=== PATIENT | female | born 1950 | race Caucasian/White ===

== ENCOUNTER → 2017-02-03 | Day surgery (SDC) | payer MEDICARE, OTHER ==
[2017-02-03] VITALS (7 sets, daily range): BP systolic 110–140; BP diastolic 69–88; PULSE 69–79; RESP 16; O2SAT 100
[~2017-02-03] MED LIST: ACET-97 PO; CALC-784 PO; CHOL100043 PO; CLC200SP2; DAPS100T2 PO; HYDR-4003 PO; LEVO112T3 PO; LOPE-147 PO; LOPE1TAB13 PO; MULT-1007 PO; PRE10 PO; SULF-239 PO; TACR1CAP PO; TACR1CAP8 PO; WARF5TAB PO; WARF7.5T PO; diphenhydrAMINE 25 mg Capsule PO ONE
[2017-02-03] MEDS: Furosemide 10 mg/mL 2 mL Inj IV PRN ×2 (14:10→18:55)
--- NOTE | 2017-02-03 18:56 | NUR ---
2 units RBC Obtained a new order for pre meds, meds given. Pt tolerated blood well, vss throughout. End vs temp is 37.3 pt refused tylenol and states she will take it at home. Lasix 20mg given after each unit as ordered. pt left ambulatory with a cane.
== END | disposition home or self-care (01) ==
LOC: MOCO 07:42
PROVIDERS: ATTEND Family Medicine
DX: D50.9 Iron deficiency anemia, unspecified (principal); R60.9 Edema, unspecified; K25.4 Chronic or unspecified gastric ulcer with hemorrhage; N18.4 Chronic kidney disease, stage 4 (severe); E03.9 Hypothyroidism, unspecified; Z79.01 Long term (current) use of anticoagulants
CPT/HCPCS: 36415; 36430; 82607; 82668; 82728; 83010; 83615; 86880; 86922; 96374; 96376; J1940; P9021

== ENCOUNTER 2017-03-10 11:29 | Inpatient (IN) | payer MEDICARE, OTHER ==
[~2017-03-10] VITALS: Ht 157.5 cm; Wt 63.7 kg
[~2017-03-10 11:29] MED LIST changes: -DAPS100T2 PO; -LOPE1TAB13 PO; -WARF7.5T PO; -diphenhydrAMINE 25 mg Capsule PO ONE
[2017-03-10 11:52] VITALS: BP 138/89; PULSE 149; RESP 12; O2SAT 99
--- NOTE | 2017-03-10 12:20 | ED.REPORT ---
HPI-Chest Pain 40 and Over Date of Service Mar 10, 2017 ED Provider: Dandre Larose Patient is a 66 year old female with a hx of resolved afib, HTN, CAD, DVT, and bilateral lung transplants who presents to the ED complaining of an elevated heart rate that was made known to her yesterday at 1400. She received an iron transfusion and was told to follow up with her sand polisher but she does not have one. She denies chest pain, SOB, syncope, headache, or any other symptoms. She takes tacrolimus. She sees a wire winding machine tender because the tacrolimus has deteriorated her kidney function. She has not been taking her BP medications ( lisinopril and amlodipine) per her PCP's instructions. She has been off of Coumadin since the 12 of February. She stopped taking her Lasix yesterday. Patient has similar symptoms a few years ago and was given medication to slow her heart down. Nursing Notes Stated Complaint: INCREASED BP AND PULSE SINCE 03/09 Chief Complaint: Dysrhythmia/Cardiac Nursing Notes Reviewed: Yes Allergies: Coded Allergies: No Known Allergies (Verified , 01/28/13) Scheduled Calcitonin [place] (Miacalcin) 30 [place]/3.7 Ml Nasalspr 1 SPRAY NA HS [place] in 1 Nostril (Alternating Nostrils) Daily Calcium Carbonate (Tums X-Str) 300 Mg Tab.chew 500-1,000 MG PO DAILY Cholecalciferol (Vitamin D3) (Vitamin D) 1,000 Unit Tablet 1,000 UNIT PO DAILY Levothyroxine (Synthroid) 112 Mcg Tablet 88 MCG PO DAILY Multivitamin (Multi-Vitamin Daily) 1 Each Tablet 1 EACH PO DAILY Prednisone (PredniSONE) 10 Mg Tablet 10 MG PO QAM Sulfamethoxazole/Trimeth 400-80 mg (Bactrim) 1 Each Tablet 80 MG PO HS Tacrolimus (Prograf) 1 Mg Capsule 2 MG PO Q12 Takes at 0820 and 2020 Warfarin Sodium (Coumadin) 5 Mg Tablet 5 MG PO DAILY Scheduled PRN Acetaminophen (Acetaminophen) 500 Mg Tablet 500-1,000 MG PO Q4 PRN PRN For Pain Hydrocodone-Acetaminophen 5-325 mg (Hydrocodone-Acetaminophen 5-325 mg) 1 Each Tablet 1 EACH PO Q4 PRN PRN For Pain Loperamide HCl (Imodium A-D) 2 Mg Capsule 2 MG PO PRN AD Miscellaneous Medications Tacrolimus (Tacrolimus) 1 Mg Capsule 2.5 MG PO General Time Seen by MD: 12:19 Chief Complaint Other (Elevated heart rate ) Hx Obtained From: Patient Arrived By: Walk-in Sudden in Onset?: Yes Onset Occurred: Yesterday Symptom Duration: Since onset Recent Healthcare: Recent doctor visit Similar Sx Previous: Yes Risk Factors )( CAD Risk Stratification Hypertension Known CAD Risk factors reviewed )( TAD Risk Stratification HypertensionNo Risk factors reviewed )( PE Risk Stratification Previous DVTNo , No Risk factors reviewed Past Medical History Past Medical History DVT CAD HTN Thyroid disease 1 episode of afib Pulmonary fibrosis prior to lung transplant Immunosuppressed GI bleed chronic edema Past Surgical History Bilat lung transplant Smoking History Former Smoker Social History Alcohol Use: Denies alcohol use Drug Use: Denies drug use Other Social History: Good social support, Ambulatory Status Independent Review of Systems Review of Systems Note: +elevated HR Respiratory: Denies: Shortness of breath Cardiovascular: Denies: Chest pain Neurologic: Denies: Headache, Syncope Complete sys rev & neg: except as marked. Physical Exam Initial Vital Signs Vital Signs (First) Date Time Temp Pulse Resp B/P Pulse Ox O2 Delivery O2 Flow Rate FiO2 03/10/17 11:52 36.8 149 12 138/89 99 Room Air Initial VS: Reviewed, Vital signs abnormal Head / Eyes: Atraumatic, Normocephalic Neck: Supple, Non-tender, Full range of motion Skin: Warm, Dry Neurologic: Alert, Oriented, Nonfocal Psychiatric: Mood/affect normal, Behavior normal, Normal thought content General/Constitutional: Awake, Alert, No acute distress Respiratory / Chest: Atraumatic, Breath sounds NL, Breath sounds = bilat, No respiratory distress Cardiovascular: Regular rhythm Heart Rate / Rhythm: Positive: Tachycardia Abdomen: Atraumatic, Soft, Non-tender Lower Extremity / Pelvis / MS: Atraumatic Trace edema ENT: Mucous membranes moist Interpretation & Diagnostics Lab Results Interpretation Result Diagram: 03/10/17 1220 03/10/17 1220 Test 03/10/17 12:20 03/10/17 12:38 White Blood Count 9.3th/mm3 (3.8-10.1) Red Blood Count 3.71mil/mm3 (3.90-5.20) Hemoglobin 10.5g/dL (12.0-15.6) Hematocrit 32.7% (35.0-46.0) Mean Corpuscular Volume 88.1fL (81-100) Mean Corpuscular Hemoglobin 28.3pg (27.0-35.0) Mean Corpuscular Hemoglobin Concent 32.1% (32.0-37.0) Red Cell Distribution Width 22.4% (12.3-15.4) Platelet Count 168bil/L (150-400) Neutrophils (%) (Auto) 78.8% (40-74) Lymphocytes (%) (Auto) 12.0% (14-46) Monocytes (%) (Auto) 7.5% (4-12) Eosinophils (%) (Auto) 0.3% (0-5) Basophils (%) (Auto) 0.2% (0-3) Sodium Level 140mEq/L (134-144) Potassium Level 3.8mEq/L (3.5-5.2) Chloride Level 102mEq/L (97-108) Carbon Dioxide Level 21mmol/L (18-29) Blood Urea Nitrogen 59mg/dL (8-27) Creatinine 2.27mg/dL (0.57-1.00) Estimat Glomerular Filtration Rate 31mL/min (>59) Glucose Level 106mg/dL (60-99) Calcium Level 9.3mg/dL (8.5-10.1) Magnesium Level 2.0mg/dL (1.6-2.6) Total Bilirubin 0.3mg/dL (0.0-1.2) Aspartate Amino Transf (AST/SGOT) 25U/L (0-50) Alanine Aminotransferase (ALT/SGPT) 13U/L (0-32) Alkaline Phosphatase 53U/L (25-165) Troponin T 0.045ug/L (0.0-0.011) Total Protein 6.9g/dL (6.4-8.4) Albumin 4.1g/dL (3.4-5.0) Hold [place] Top Tube Received (Received) ECG Interpretation ECG Interpretation: aflutter with a rate of 145 Time: 12:40 Interpreted by: ED physician ECG Interpretation: Aflutter rate 111 LVH Time: 15:09 Interpreted by: ED physician X-Ray Chest Interpretation Chest Xray Interpretation: IMPRESSION: No acute pulmonary process. Dictated by: Amanda Torres M.D. on 03/10/2017 at 12:10 Approved by: Amanda Torres M.D. on 03/10/2017 at 12:11 View: Portable, 1 view Interpretation / Wet Read by: Interpret - Radiologist Re-Eval/Medical Decision Med Decision/Clinical Course 66-year-old female with history of lung transplant, renal insufficiency, hypothyroidism, anemia, hypertension. She was seen yesterday for her third iron infusion and told that her heart rate was elevated, advised to call her sand polisher. Because she does not have a sand polisher she did not do so and did not make it to the ER until today. She is completely asymptomatic. He notes that similar elevated heart rate happened about 3 years ago when she had her lung transplant and resolved with medication. It has not recurred since. She has been on Coumadin due to a DVT until just recently because of stomach ulcer. Her EKG showed atrial flutter with rapid ventricular response. Her heart rate was not responsive to Lopressor 15 mg IV, however after receiving diltiazem 20 mg IV 1 and her heart rate dropped from the 140s to the 90s. Unfortunately this did not last long and her heart rate drifted back up to the 140s. She was started on a diltiazem drip and admitted for further workup and treatment. Her troponin was elevated at 0.045, most likely due to demand ischemia with an ongoing elevated heart rate. Time of Eval: 14:21 Re-Evaluation/Progress Note: Rechecked pt who is still not having CP or SOB. reports her lowest HR has been 137. Discussed plan to try diltiazem. Patient understands and agrees with plan. All questions addressed at this time. Re-Evaluation/Progress Note: Heart rate improved down to 90s after diltiazem, but then drifted back up into the 130s and 140s. Patient agreeable to admission Consultation : Referral / Consult Name: Kim Norris DO Dental Service Technician: Will see patient, Agrees with eval, Accepts admit Note: Will send resident down for evaluation Counseled Regarding: Diagnosis, Lab results, Need for admission Discharge & Departure Primary Impression: Atrial flutter with rapid ventricular response Additional Impressions: Elevated troponin Acute renal insufficiency Anemia Anemia type: unspecified type Qualified Code: D64.9 - Anemia, unspecified Disposition: ADMITTED TO HOSPITAL Discharge Condition All VS Reviewed: Yes Condition: Stable Referrals: Chandler Nguyen MD (PCP) Crit Care Except Billable Proc Time Spent: 30-74 minutes Services Performed: Patient management by me, Time spent at bedside, Reviewing test results, Reviewing imaging, Discussing patient care, Documentation in record, Time with fam/surrogate Scribe Attestation Portions of this note were transcribed by Kenn Kwok. I, Dr. Larose personally performed the history, physical exam and medical decision-making; I reviewed and confirmed the accuracy of the information in the transcribed note. Signed by: Talat Huffman, 03/10/17 copies to: Chandler Nguyen MD, Gary R DO Mar 10, 2017 12:20 KENN KWOK Mar 10, 2017 12:32
[2017-03-10 12:41] LABS: BASOPHILS % (AUTO) 0.2 % (0-3); EOSINOPHILS % (AUTO) 0.3 % (0-5); MONOCYTES % (AUTO) 7.5 % (4-12); Mean Corpuscular Hemoglobin 28.3 pg (27.0-35.0); Mean Corpuscular Volume 88.1 fL (81-100); NEUTROPHILS % (AUTO) 78.8 % (40-74); Platelet Count 168 bil/L (150-400)
--- NOTE | 2017-03-10 13:12 | DRSVH ---
PROCEDURE: X-RAY CHEST ONE VIEW, PORTABLE ([id number]) INDICATIONS: Tachycardia TECHNIQUE: One view of the chest was acquired. COMPARISON: [facility], , CHEST 1VW (PORTABLE), 07/26/2013, 12:25. FINDINGS: Surgical changes and devices: Sternotomy clips are noted. Lungs and pleura: No pleural effusions or pneumothorax. Lungs are clear. Mediastinum: Mediastinal contours appear normal. Heart size is enlarged. Bones and chest wall: No suspicious bony lesions. Overlying soft tissues appear unremarkable. IMPRESSION: No acute pulmonary process. Dictated by: Amanda Torres M.D. on 03/10/2017 at 12:10 Approved by: Amanda Torres M.D. on 03/10/2017 at 12:11
[2017-03-10] MEDS: MeTOProlol 1 mg/mL 5 mL Inj IVPUSH SCH ×4 (13:16→14:03)
[2017-03-10 13:19] LABS: TROPONIN T 0.045 ug/L (0.0-0.011)
[2017-03-10] MEDS ORDERED: Diltiazem 5 mg/mL 5 mL Inj IVPUSH ONE (14:25)
[2017-03-10] MEDS ORDERED: 0.9% Sodium Chloride 1,000 ML IV ONE (14:51)
[2017-03-10] MEDS ORDERED: Diltiazem HCl 125 MG in 0.9% Sodium Chloride 100 ML, Pharmacy To Mix 1 EA IV SCH ×2 (15:35→16:35)
[2017-03-10] MEDS ORDERED: Ondansetron 2 mg/mL 2 mL Inj IVPUSH PRN (16:35)
[2017-03-10] MEDS ORDERED: Alum-Mag Hydrox-Simeth 30 mL Suspension PO PRN (16:35)
[2017-03-10] MEDS ORDERED: Polyethylene Glycol (PEG) 17 Gm Powder PO PRN (16:35)
[2017-03-10] MEDS ORDERED: HYDROcodone-APAP 5-325 mg Tablet PO PRN (16:35)
--- NOTE | 2017-03-10 16:55 | PCM.HPMED ---
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 She reports that she had noticed a fast heart rate on her home ui ux web developer for the past several days but had been hoping that it would resolve on its own. She denies chest pain or palpitations, fatigue beyond her baseline, dizziness, or syncope. She does report BL weakness in her legs which has been longstanding since a fall earlier in the year which further exacerbated her chronic back pain. She states that had she known how many complications she would have experienced post transplant she likely would have elected for palliative care. She states that she likes to be up about and active because being sedentary causes her back pain to flare. She reports that she had been taking Warfarin until February 12 due to her history of suspected Factor V leiden and previous DVTs, but had discontinued this medication due to her active peptic ulcers which had lead to anemia requiring transfusion. She had been advised by GI to begin triple therapy for H.pylori but had deferred beginning that treatment until she could converse with her transplant sweatband maker about possible drug interactions. In the ED the patient was found to be in Afib with RVR with a rate of 140 unresponsive to metoprolol to IV diltiazem. The patient was converted to a Diltiazem drip and admitted for further management of her Afib. Review of Systems: Comprehensive ROS negative except as listed above in the HPI Allergies Coded Allergies: No Known Allergies (Verified , 01/28/13) Home Medications Calcitonin [place] (Miacalcin) 30 [place]/3.7 Ml Nasalspr 1 SPRAY NA HS [place] in 1 Nostril (Alternating Nostrils) Daily Calcium Carbonate (Tums X-Str) 300 Mg Tab.chew 500-1,000 MG PO DAILY Cholecalciferol (Vitamin D3) (Vitamin D) 1,000 Unit Tablet 1,000 UNIT PO DAILY Levothyroxine (Synthroid) 112 Mcg Tablet 88 MCG PO DAILY Multivitamin (Multi-Vitamin Daily) 1 Each Tablet 1 EACH PO DAILY Prednisone (PredniSONE) 10 Mg Tablet 10 MG PO QAM Sulfamethoxazole/Trimeth 400-80 mg (Bactrim) 1 Each Tablet 80 MG PO HS Tacrolimus (Prograf) 1 Mg Capsule 2 MG PO Q12 Takes at 0820 and 2020 Warfarin Sodium (Coumadin) 5 Mg Tablet 5 MG PO DAILY Scheduled PRN Acetaminophen (Acetaminophen) 500 Mg Tablet 500-1,000 MG PO Q4 PRN PRN For Pain Hydrocodone-Acetaminophen 5-325 mg (Hydrocodone-Acetaminophen 5-325 mg) 1 Each Tablet 1 EACH PO Q4 PRN PRN For Pain Loperamide HCl (Imodium A-D) 2 Mg Capsule 2 MG PO PRN AD Miscellaneous Medications Tacrolimus (Tacrolimus) 1 Mg Capsule 2.5 MG PO PMH DVT CAD HTN Thyroid disease 1 episode of afib Pulmonary fibrosis prior to lung transplant Immunosuppressed GI bleed secondary to H.pylori positive peptic ulcer disease chronic edema Surgical History Bilat lung transplant Family History Patient reports history of blood clots in multiple family members Social History Hx Alcohol Use: No Hx Substance Use: No Hx Tobacco Use: Yes (quit 30 years ago) Smoking Status: Former Smoker Living Arrangement: with Family Exam Vital Signs Vital Sign - Last Date Time Temp Pulse Resp B/P Pulse Ox O2 Delivery O2 Flow Rate FiO2 03/10/17 11:52 36.8 149 12 138/89 99 Room Air Exam Gen: A/O x3 pleasant cooperative age appropriate woman in NAD Neck: Supple, non tender, no lymphadenopathy, no JVD HEENT: PERRL, EOMI, no scleral icterus, no conjunctival pallor CV: Irregularly irregular tachycardia with no murmurs rubs or gallops Resp: lungs CTA BL, no wheezing rales or rhonchi Abd: No rebound masses guarding or tenderness Extr: No clubbing cyanosis or edema, half and half nails Neuro: CN 2-12 grossly intact, no focal neurologic deficit Psych: Intelligent and thoughtful woman with appropriate mood and affect Lab and Diagnostics Labs Item Value Date Time Red Blood Count 3.71 mil/mm3 L 03/10/17 1220 Mean Corpuscular Volume 88.1 fL 03/10/17 1220 Mean Corpuscular Hemoglobin 28.3 pg 03/10/17 1220 Mean Corpuscular Hemoglobin Concent 32.1 % 03/10/17 1220 Red Cell Distribution Width 22.4 % H 03/10/17 1220 Neutrophils (%) (Auto) 78.8 % H 03/10/17 1220 Lymphocytes (%) (Auto) 12.0 % L 03/10/17 1220 Monocytes (%) (Auto) 7.5 % 03/10/17 1220 Eosinophils (%) (Auto) 0.3 % 03/10/17 1220 Basophils (%) (Auto) 0.2 % 03/10/17 1220 Estimat Glomerular Filtration Rate 31 mL/min 03/10/17 1220 Calcium Level 9.3 mg/dL 03/10/17 1220 Magnesium Level 2.0 mg/dL 03/10/17 1220 Total Bilirubin 0.3 mg/dL 03/10/17 1220 Aspartate Amino Transf (AST/SGOT) 25 U/L 03/10/17 1220 Alanine Aminotransferase (ALT/SGPT) 13 U/L 03/10/17 1220 Alkaline Phosphatase 53 U/L 03/10/17 1220 Troponin T 0.045 ug/L *H 03/10/17 1220 Total Protein 6.9 g/dL 03/10/17 1220 Albumin 4.1 g/dL 03/10/17 1220 Result Diagram: 03/10/17 1220 03/10/17 1220 X-Rays, CTs and MRIs X-RAY CHEST ONE VIEW, PORTABLE IMPRESSION: No acute pulmonary process. Dictated by: Amanda Torers M.D. on 03/10/2017 at 12:10 Approved by: Amanda Torres M.D. on 03/10/2017 at 12:11 . 12-lead ECG aflutter with a rate of 145 Assessment & Plan Yesenia Penny is a complex 66 year old woman with a PMH of idiopathic pulmonary fibrosis s/p BL lung transplant in 2012 on chronic immunosuppressive therapy, Factor V Leiden with prior DVT, and active H.pylori PUD having discontinued Warfarin on February 12; she presents with asymptomatic Afib with RVR with rates in the 140s. Afib with RVR, POA, acute. Active -Patient with a history of Afib following transplant surgery treated with Metoprolol and Amiodarone -Currently on Dilt drip, may consider amiodarone drip as this was effective in the past -[id number] 3 -Will hold Warfarin pending records about GI bleed -Tele monitoring -Cardiology consult in the AM S/P Bl lung transplant, POA, chronic. Stable -Continue immunosuppressive regimen Tacrolimus -Patient pulmonary status is apparently stable without pulmonary meds CKD stage IIIB, POA. Active -Likely secondary to Tacrolimus -Being followed by subwarehouse supervisor at she cannot recall the name -Will continue Calcium supplementation with Calcitonin, Calcium Carb, and D3 -Nephrology consult H.pylori positive PUD, POA, chronic. Active -Holding Warfarin as above -Will defer H.pylori therapy per patient's wishes -Continue to Track H/H -Famotidine Chronic back pain, POA. Active -patient's home Percocet make her "loopy" only use as needed -Tylenol PRN -Calcium supplementation as above -patient prefers to periodically ambulate Hypothyroid, POA, chronic. Active -Continue home Levothyroxine Chronic Diarrhea, POA. Active -Continue home Loperamide patient Status: Inpatient, anticipated length of stay >2 midnights due to severity of condition, complexity of treatment plan, and risk of adverse events. Pain Evaluation: Adequate Pain Control GI Prophylaxis: H2 mariajose VTE Prophylaxis Indicated: Contraindicated (active GI bleed) VTE Mechanical Devices: Intermittant Pneumatic CD Resuscitation Status: DNR/DNI:Do Not Resuscitate/Intubate Attending Statement The patient was seen and examined together with Dr. Perez on 03/10/17 and I have added additional information to the note above. Earl Perez DO Mar 10, 2017 16:55 Kim Norris DO Mar 13, 2017 16:19
[2017-03-10] MEDS ORDERED: CALC500T9 PO (16:56)
[2017-03-10] MEDS ORDERED: ACET-2561 PO (16:56)
[2017-03-10] MEDS ORDERED: MULT-1018 PO (16:56)
[2017-03-10] MEDS ORDERED: PANT40TA3 PO (16:56)
[2017-03-10 17:23] VITALS: PULSE 143
[2017-03-10 17:24] VITALS: BP 121/86; PULSE 141; RESP 24; O2SAT 100
[2017-03-10] MEDS ORDERED: Amiodarone 150 mg/100 mL D5W 150 MG in IV Premix 1 EACH IV ONE (18:20)
[2017-03-10] MEDS ORDERED: Amiodarone 360 mg/200 mL D5W 360 MG, Filter, Taxol 14256-28 1 EACH in IV Premix 1 EACH IV SCH (18:20)
--- NOTE | 2017-03-10 18:25 | PCM.ADCARE ---
Advance Care Planning Note Plan: Date: 03/10/2017 Purpose of encounter: Goals of care Parties in attendance: The patient, Dr. Norris, Dr. Perez Diagnoses: A. fib with RVR CAD History of DVT Hypertension Thyroid disease Pulmonary fibrosis prior to lung transplant Immunosuppression GI bleed secondary to H. pylori positive for peptic ulcer disease Chronic edema Decisional capacity: Good Plan: The patient is aware of the current diagnosis and would like to be DO NOT RESUSCITATE/DO NOT INTUBATE. The patient understands that no chest compressions will be done and the patient will not be intubated. The patient and family understands that no form of CPR will be attempted and are in agreement with this. The patient does still want other measures performed such as IV fluids, antibiotics, and possible blood transfusions but does not want any form of CPR. CODE STATUS: DO NOT RESUSCITATE/DO NOT INTUBATE Time spent with advanced care planning: Greater than 16 minutes Kim Norris DO Mar 10, 2017 18:25
--- NOTE | 2017-03-10 19:19 | NUR ---
Arrived to unit Pt arrived to PCC room 2002 at ~1730 from ED, reporting pain in back from lack of movement and back pain hx, refused vicodin PRN at that time requesting a tylenol PRN, notified, tylenol PRN added, tylenol given which Pt reported as effective. Pt on diltiazem gtt at 10mg/hr with HR sinus tach in the 140s, after being on the floor for ~1hour, rate increased to 15mg/hr, HR remained in the 140s for ~45min, notified again who ordered diltiazem gtt changed to amiodarone gtt, orders received prior to shift change. While giving report to oncoming SANDRA RN and notifying that Pt needed to be switched to amiodarone after shift change, Pt's HR noted to be 90s-110s on dilt gtt, NOC RN verbalized that she would monitor and notify SANDRA VALLE of change in HR.
[2017-03-10 20:32] VITALS: BP 83/54; PULSE 78; RESP 16; O2SAT 98
[2017-03-10] MEDS ORDERED: Trimethoprim-Sulfa 160 mg-800 mg Tablet PO SCH (21:00)
[2017-03-10] MEDS: Calcitonin 200 IU 3.7 mL Nasal Spray NASAL SCH (21:00)
[2017-03-10 23:06] LABS: APPEARANCE,URINE CLEAR (CLEAR,HAZY); COLOR,URINE YELLOW (YELLOW); OCCULT BLOOD,URINE TRACE (NEGATIVE); UROBILINOGEN,URINE NORMAL (NORMAL)
[2017-03-10 23:50] VITALS: BP 114/78; PULSE 78; RESP 14; O2SAT 98
[2017-03-11] VITALS (8 sets, daily range): BP systolic 99–119; BP diastolic 66–85; PULSE 80–150; RESP 13–20; O2SAT 96–100
[2017-03-11 01:08] LABS: BASOPHILS % (AUTO) 0.3 % (0-3); EOSINOPHILS % (AUTO) 0.3 % (0-5); MONOCYTES % (AUTO) 8.1 % (4-12); Mean Corpuscular Hemoglobin 28.4 pg (27.0-35.0); Mean Corpuscular Volume 89.6 fL (81-100); NEUTROPHILS % (AUTO) 67.4 % (40-74); Platelet Count 146 bil/L (150-400)
[2017-03-11 01:12] LABS: INR 0.98 ratio
[2017-03-11 01:19] LABS: Magnesium 2.1 mg/dL (1.6-2.6)
[2017-03-11] MEDS ORDERED: Diltiazem HCl 125 MG in 0.9% Sodium Chloride 100 ML, Pharmacy To Mix 1 EA IV SCH (01:45)
--- NOTE | 2017-03-11 06:11 | NUR ---
HR/BP/Diltiazem Drip/Troponins Pt's HR at beginning of shift was A-Flutter 80s-100s with the dilt drip at 15ml/hr. Pt's SBP was in the 80s-90s and MD was notified. MD said to continue dilt drip at this time since pt is responding to the drip and the HR is <100 at rest but decrease the dose to 10ml/hr. Pt was eventually titrated down to 5ml/hr with HR remaining A-Flutter 70s-80s. Pt's HR did eventually go up during rest to 70s-100s so dilt drip was titrated back up to 10ml/hr and that is the rate that the pt is currently at with HR A-Flutter 70s-80s. Pt does get into the 150s when up to [facility] [place] have trended down and last Trop draw was 0.027.
--- NOTE | 2017-03-11 07:30 | NUR ---
ECHO/Home Med ECHO in room at 0730. Pt states she took her home medication for Synthroid at 0715. Pt educated re home medications to go to pharmacy for relabeling. Pt educated on risks involved with doubling up on medication, asked pt to wait for medications from hospital. Pt states she would never allow doubling to happen. Pt refused to send home medications to pharmacy states she will send home with . Consulted production supervisor off shift RN after leaving pt room, production supervisor off shift RN educated pt last night re home medication as well. Care continues.
[2017-03-11] MEDS: Calcium Carbonate (Oyster Shell) 500 mg Tablet PO SCH (08:30)
[2017-03-11] MEDS: predniSONE 10 mg Tablet PO SCH (10:16)
--- NOTE | 2017-03-11 12:43 | NUR ---
LFA IV IV painful per pt. Stopped Diltiazem IV, notified MD, notified IV therapy. IV therapy placing new IV now. MD ordered PO Diltiazem to be administered now, pharmacy notified, and aware. Conntinue Diltiazem drip 10 ml/hr for 2 hours post administration of Diltiazem PO, per MD order. Care continues.
--- NOTE | 2017-03-11 14:15 | PCM.PNMED ---
Subjective Date of Service Mar 11, 2017 Subjective Subjective: Patient sitting up in bed on exam, states that she finished to feel asymptomatic. She feels anxious and is curious about her discharge from the hospital. I let her know that this will likely be a short stay in the hospital , but this is also dependent on how well she responds to the medication. Events Overnight: No acute events overnight. ROS: Denies fever/chills, nausea/vomiting, headache, weakness, abdominal pain, chest pain, shortness of breath, increased swelling in hands or feet. Exam Vital Signs Vital Sign - Last Date Time Temp Pulse Resp B/P Pulse Ox O2 Delivery O2 Flow Rate FiO2 03/11/17 12:04 36.6 87 18 101/67 96 Room Air Intake and Output 03/10/17 03/10/17 03/11/17 Cumulative From/Thru 15:00 23:00 07:00 03/10/17 11:52 - 03/11/17 04:45 Intake Total 906 ml 895 ml 1801 ml Output Total 350 ml 350 ml Balance 906 ml 545 ml 1451 ml Intake Oral 300 ml 300 ml IV Total 906 ml 595 ml 1501 ml Output Urine Total 350 ml 350 ml # Bowel Movements 2 2 Exam General: No acute distress, well-developed, well-nourished HEENT: Normocephalic, atraumatic. External ears without defect. Pupils equal, round, and reactive to light and accommodation. Anicteric sclerae, moist conjunctivae. Cardiovascular: Tachycardic with no murmurs, rubs, or gallops appreciated Pulmonary: Clear to auscultation bilaterally with no crackles, wheezes, or rhonchi. Normal respiratory effort with no use of accessory muscles. Abdomen: Bowel tones present. Soft, nontender, nondistended. Extremities: No clubbing, cyanosis, edema Skin: Normal temperature, turgor, and texture; no rash, ulcers, or subcutaneous nodules appreciated. Neurological: Cranial nerves grossly intact. Reflexes, coordination, and sensory function within normal limits. Normal muscle strength, tone, and bulk. Psychiatric: Normal mood and affect. Alert and oriented to person, place, and time IVs and Medications Medications Reviewed: Medications were reviewed in detail Medications High-risk medications include: Tacrolimus Diltiazem drip Lab and Diagnostics Result Diagram: 03/11/17 0018 03/11/17 0018 X-Rays, CTs and MRIs X-RAY CHEST ONE VIEW, PORTABLE IMPRESSION: No acute pulmonary process. Dictated by: Amanda Torres M.D. on 03/10/2017 at 12:10 Approved by: Amanda Torres M.D. on 03/10/2017 at 12:11 . 12-lead ECG aflutter with a rate of 145 Cardiac Echo Impressions Echocardiogram Interpretation Summary 1) Normal left ventricular thickness, size, wall motion, and systolic function (EF 60-65%). 2) Normal right ventricular size and function. 3) The left atrium is moderately dilated. 4) No significant valvular abnormalities. 5) Atrial fibrillation with ventricular rates in the 79-127bpm are present during the study. 6) No prior Echo avaliable for comparison. Reading Physician:02:44 PM . Assessment & Plan Yesenia Penny is a complex 66 year old woman with a PMH of idiopathic pulmonary fibrosis s/p BL lung transplant in 2012 on chronic immunosuppressive therapy, Factor V Leiden with prior DVT, and active H.pylori PUD having discontinued Warfarin on February 12; she presents with asymptomatic Afib with RVR with rates in the 140s. Afib with RVR, POA, acute. Active -Patient with a history of Afib following transplant surgery treated with Metoprolol and Amiodarone -Dilt drip discontinued , patient switched to oral diltiazem every 6hrs -Patient already meets criteria for anticoagulation due to factor V Leiden mutation -Will hold Warfarin due history of recent GI bleed -Tele monitoring -Cardiology following -Echocardiogram ejection fraction 60-65%. Other findings as above Factor V Leiden mutation, POA, acute, active -Warfarin was discontinued due to gastric bleeding secondary to ulcers -Diltiazem drip discontinued on 03/11 due to developing SVT -Continue to monitor for signs of DVT, SVT, PE S/P Bl lung transplant, POA, chronic. Stable -Continue immunosuppressive regimen Tacrolimus -Patient pulmonary status is apparently stable without pulmonary meds CKD stage IIIB, POA. Active -Likely secondary to Tacrolimus -Being followed by information resource consultant at she cannot recall the name -Will continue Calcium supplementation with Calcitonin, Calcium Carb, and D3 -Nephrology consulted H.pylori positive PUD, POA, chronic. Active -Holding Warfarin as above -Will defer H.pylori therapy per patient's wishes -Continue to Track H/H -Famotidine Chronic back pain, POA. Active -patient's home Percocet make her "loopy" only use as needed -Tylenol PRN -Calcium supplementation as above -patient prefers to periodically ambulate Hypothyroid, POA, chronic. Active -Continue home Levothyroxine Chronic Diarrhea, POA. Active -Continue home Loperamide Disposition: Patient will require another 24 hours of cardiac monitoring prior to discharge home. Once we are able to titrate the patient onto a good regiment then she will be able to be discharged home safely and follow-up as an outpatient. We will continue to discuss with the patient the possibilities of taking triple therapy for her H. pylori and stomach ulcer as the patient will most likely need to be anticoagulated due to her atrial fibrillation. GI Prophylaxis: H2 mariajose VTE Mechanical Devices: Intermittant Pneumatic CD Resuscitation Status: DNR/DNI:Do Not Resuscitate/Intubate Attending Statement The patient was seen and examined together with Dr. Rodriguez on 03/11/17 and I have added additional information to the note above. Andrae Rodriguez DO Mar 11, 2017 14:15 Kim Norris DO Mar 12, 2017 13:13
--- NOTE | 2017-03-11 14:45 | DRSVH ---
[facility] [address] [place] [address] Echocardiogram Report Name: FIDEL SHELTON Date: 03/11/2017 Height: 62 in Hospital Exam Location: [facility] Weight: 124 lb Gender: Female BSA: 1.6 m2 : 1950 Age: 66 yrs BP: 115/66 mmHg Reason For Study: Atrial fibrillation Ordering Physician: Performed By: [facility] Interpretation Summary 1) Normal left ventricular thickness, size, wall motion, and systolic function (EF 60-65%). 2) Normal right ventricular size and function. 3) The left atrium is moderately dilated. 4) No significant valvular abnormalities. 5) Atrial fibrillation with ventricular rates in the 79-127bpm are present during the study. 6) No prior Echo avaliable for comparison. Procedure: A two-dimensional transthoracic echocardiogram with color flow and Doppler was performed. The study quality was technically adequate. There is no prior echocardiogram noted for this patient. The patient was in atrial fibrillation with heart rates between 79-127 bpm during the exam. Left Ventricle: The left ventricle is normal in size. Left ventricular wall thickness is normal. The ejection fraction is estimated to be 60-65%. Diastolic function could not be accurately assessed due to atrial fibrillation. Right Ventricle: The right ventricle is normal in size, thickness and function. Atria: The left atrium is moderately dilated. Right atrial size is normal. The interatrial septum is intact with no evidence for an atrial septal defect. Mitral Valve: The mitral valve is grossly normal. There is trace mitral regurgitation. Aortic Valve: The aortic valve is trileaflet. The aortic valve opens well. There is no aortic valve stenosis. No aortic regurgitation is present. Tricuspid Valve: The tricuspid valve leaflets are thin and pliable. There is mild tricuspid regurgitation. The right ventricular systolic pressure is estimated at 29 mmHg assuming a right atrial pressure of 3 mm Hg. Pulmonic Valve: The pulmonic valve is not well visualized. There is no pulmonic valvular regurgitation. Great Vessels: The aortic root is normal size. The dimensions of the ascending aorta are normal. The IVC is of normal diameter and collapses greater than 50% with a sniff. This suggests a low right atrial pressure of 3 mm Hg. Pericardium/ Pleura There is no pericardial effusion. There is no pleural effusion. MMode/2D Measurements & Calculations LVIDd: 3.7 cm LA dimension: 4.3 cm RA long axis Ao root diam LVIDs: 2.4 cm FS: 33.9 % LA A2 area: 24.6 cm RA area Aortic Jxn: 2.9 cm IVSd: 1.1 cm LA A4 area: 23.7 cm asc Aorta Diam LVPWd: 0.85 cm LA length (vol) : 13.2 cm RA vol Ao Arch Diam (Prox LA vol: 81.6 ml : 33.9 ml Trans): 2.8 cm LA vol index RA : 21.7 mm/ : 52.3 ml/m2 RVDd major : 5.3 cm LV vasquez. diameter/BSA LV sys. diameter/BSA RVD1 (basal) RVD2 (mid): 2.7 cm (cm/m^2): 2.3 (cm/m^2): 1.6 Doppler Measurements & Calculations LVOT Max Donn MV E max donn MV E/A: 2.0 TR max donn : 144.3 cm/sec : 85.2 cm/sec Med Peak E' Donn : 252.5 cm/sec MV A max donn TR max PG : 42.2 cm/sec E/E' med: 7.8 : 25.5 mmHg MV P1/2t: 46.6 msec Lat Peak E' Donn PA V2 max : 103.8 cm/sec E/E' lat: 5.7 PA mean PG E/e' average: 6.8 PA Accel Time : 0.08 sec MV dec time MV P1/2t max donn LV V1 max PG PA V2 mean : 0.15 sec : 59.8 cm/sec MVA(P1/2t): 4.7 cm2 LV V1 VTI: 25.5 cm Reading Physician:02:44 PM
--- NOTE | 2017-03-11 15:36 | PCM.CHPCAR ---
Consult Subjective Date of service Mar 11, 2017 Date of admit Mar 10, 2017 at 16:51 Provider Requesting Consult Requesting Provider: Kim Norris DO Primary Care Physician Primary Care Physician: Chandler Nguyen MD Chief Complaint 66-year-old woman history of IPF status post bilateral lung transplant in 2012, paroxysmal atrial fibrillation, and GI bleeding from peptic ulcer disease in September 2016 admitted due to atrial fibrillation with rapid ventricular response. History of Present Illness Patient states that she is doing well and has no symptoms. She is able to do her usual activities including her yard work without any difficulty. Two days ago, she went to hematology clinic for her chronic anemia suspected and was told that she has faster heart rate and see cardiology for it. 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 So she decided to come to the emergency room yesterday for further care. Since being in the hospital, her heart rates have been better controlled with diltiazem drip. She has been transitioned to PO diltiazem today. Review of Systems Review of Systems Per history of present illness and otherwise unremarkable PMH Past Medical History # IPF status post bilateral lung transplant in 2012 # Paroxysmal atrial fibrillation # DVT 05/2016 # GI bleeding from peptic ulcer disease while on warfarin in 09/2016 # CKD suspected from tacrolimus Scheduled Calcitonin Crandall (Miacalcin) 30 [place]/3.7 Ml Nasalspr 1 SPRAY NA HS (Reported) [place] in 1 Nostril (Alternating Nostrils) Daily Calcium Carbonate (Tums) 500 Mg Tab.chew 500 MG PO DAILY (Reported) Cholecalciferol (Vitamin D3) (Vitamin D) 1,000 Unit Tablet 1,000 UNIT PO DAILY ( Reported) Levothyroxine (Synthroid) 112 Mcg Tablet 88 MCG PO DAILY (Reported) Loperamide HCl (Imodium A-D) 2 Mg Capsule 2-4 MG PO QAM (Reported) Multivitamin (Multi Vitamin Daily) 1 Each Tablet 0.5 EACH PO BID (Reported) Pantoprazole DR (Pantoprazole DR) 40 Mg Tablet.dr 40 MG PO BID (Reported) Prednisone (PredniSONE) 10 Mg Tablet 10 MG PO QAM (Reported) Sulfamethoxazole/Trimeth 400-80 mg (Bactrim) 1 Each Tablet 80 MG PO HS (Reported ) Tacrolimus (Prograf) 1 Mg Capsule 2 MG PO QAM (Reported) Tacrolimus (Tacrolimus) 1 Mg Capsule 3 MG PO QPM (Reported) Warfarin Sodium (Coumadin) 5 Mg Tablet 5 MG PO DAILY (Reported) Scheduled PRN Acetaminophen (Extra Strength Non-Aspirin) 500 Mg Tablet 1-2 EACH PO BID PRN PRN For Pain (Reported) Hydrocodone-Acetaminophen 5-325 mg (Hydrocodone-Acetaminophen 5-325 mg) 1 Each Tablet 1 EACH PO Q4 PRN PRN For Pain (Reported) Discontinued Medications Acetaminophen (Acetaminophen) 500 Mg Tablet 500-1,000 MG PO Q4 PRN PRN For Pain (Reported) Calcium Carbonate (Tums X-Str) 300 Mg Tab.chew 500-1,000 MG PO DAILY (Reported) Multivitamin (Multi-Vitamin Daily) 1 Each Tablet 1 EACH PO DAILY (Reported) Current Inpatient Medications Current Medications Metoprolol Tartrate 5 mg 5 mg Q5MIN IVPUSH Last administered on 03/10/17 14:03 ; Admin Dose 5 MG; Start 03/10/17 at 12:45; Stop 03/10/17 at 18:15; Status DC Diltiazem HCl/ Sodium Chloride/ Miscellaneous 125 ml @ 5 mls/hr Q24H IV; Start 03/10/17 at 15:35; Stop 03/10/17 at 17:20; Status DC Famotidine 20 mg DAILY PO; Start 03/11/17 at 08:30 Al Hydrox/Mg Hydrox/Simethicone 30 ml Q6H PRN PO; Start 03/10/17 at 16:35 Ondansetron HCl 4 to 8 mg Q4H PRN IVPUSH; Start 03/10/17 at 16:35 Senna 17.2 mg BID PRN PO; Start 03/10/17 at 16:35 Polyethylene Glycol 17 gm DAILY PRN PO; Start 03/10/17 at 16:35 Calcitonin [place] 1 spray HS NASAL; Start 03/10/17 at 21:00 Cholecalciferol 1,000 unit DAILY PO Last administered on 03/11/17 10:16; Admin Dose 1,000 UNIT; Start 03/11/17 at 08:30 Acetaminophen/ Hydrocodone Bitart 1 tablet Q4H PRN PO Last administered on 03/11 00:51; Admin Dose 1 TABLET; Start 03/10/17 at 16:35 Levothyroxine Sodium 88 mcg DAILYAC PO; Start 03/11/17 at 07:30 Loperamide HCl 2 mg DAILY PRN PO; Start 03/10/17 at 16:35 Prednisone 10 mg DAILYWM PO Last administered on 03/11/17 10:16; Admin Dose 10 MG; Start 03/11/17 at 08:00 Tacrolimus 2 mg DAILY PO Last administered on 03/11/17 10:06; Admin Dose 2 MG; Start 03/11/17 at 08:30 Tacrolimus 3 mg HS PO; Start 03/10/17 at 21:00 Calcium Carbonate 500 mg DAILY PO; Start 03/11/17 at 08:30 Multivitamins/ Minerals Therapeutic 1 tablet DAILY PO Last administered on 10:07; Admin Dose 1 TABLET; Start 03/11/17 at 08:30 Trimethoprim/ Sulfamethoxazole 0.5 tablet 0.5 tablet HS PO; Start 03/10/17 at 21 :00; Stop 03/10/17 at 21:00; Status DC Diltiazem HCl/ Sodium Chloride/ Miscellaneous 125 ml @ 5 mls/hr Q24H IV; Start 03/10/17 at 16:35; Stop 03/10/17 at 18:31; Status DC Acetaminophen 650 mg 650 mg Q6H PRN PO Last administered on 03/10/17 17:45; Admin Dose 650 MG; Start 03/10/17 at 17:35 Diltiazem HCl/ Sodium Chloride/ Miscellaneous 125 ml @ 0 mls/hr Q0M IV Last administered on 03/11/17 03:27; Admin Dose 10 MLS/HR; Start 03/11/17 at 01:45; Stop 03/11/17 at 15:00; Status DC Diltiazem HCl 30 mg Q6H PO Last administered on 03/11/17 12:56; Admin Dose 30 MG; Start 03/11/17 at 13:00 Allergies: Coded Allergies: No Known Allergies (Verified , 01/28/13) Family History Family History No family history of early heart disease Social History Hx Alcohol Use: NoHx Substance Use: NoHx Tobacco Use: Yes (quit 30 years ago) Smoking Status: Former Smoker Living Arrangement: with Family Exam Vital Signs Vital Sign - Last Date Time Temp Pulse Resp B/P Pulse Ox O2 Delivery O2 Flow Rate FiO2 03/11/17 12:04 36.6 87 18 101/67 96 Room Air Intake and Output 03/10/17 03/10/17 03/11/17 Cumulative From/Thru 14:59 22:59 06:59 03/10/17 11:52 - 03/11/17 04:45 Intake Total 906 ml 895 ml 1801 ml Output Total 350 ml 350 ml Balance 906 ml 545 ml 1451 ml Intake Oral 300 ml 300 ml IV Total 906 ml 595 ml 1501 ml Output Urine Total 350 ml 350 ml # Bowel Movements 2 2 Objective General appearance: No apparent distress, well-nourished, pleasant, cooperative HEET: Normocephalic atraumatic, no scleral icterus, tongue midline, mucous membranes moist Neck: supple Cardiovascular: RRR, normal S1 and normal S2, no murmurs/ rubs/gallops, PMI nondisplaced, no JVD, no peripheral edema Respiratory: Good aeration, CTAB Abdomen: Soft, nontender, obese, + bowel sounds Neuro: Alert, no facial droop, tongue midline, no gross motor deficits Psych: appropriate affect Lab and Diagnostics Result Diagram: 03/11/17 0018 03/11/17 0018 X-Rays, CTs and MRIs Echo today: 1) Normal left ventricular thickness, size, wall motion, and systolic function ( EF 60-65%). 2) Normal right ventricular size and function. 3) The left atrium is moderately dilated. 4) No significant valvular abnormalities. 5) Atrial fibrillation with ventricular rates in the 79-127bpm are present during the study. 6) No prior Echo available for comparison. 12-lead ECG Telemetry: Atrial fibrillation with heart rates in the 80s but the heart rate increase to 120s to 140s with activity. Assessment & Plan Assessment 66-year-old woman history of IPF status post bilateral lung transplant in 2012, paroxysmal atrial fibrillation, and GI bleeding from peptic ulcer disease in September 2016 admitted due to atrial fibrillation with rapid ventricular response: # Atrial fibrillation with rapid ventricular response: Etiology of atrial fibrillation is likely idiopathic. Patient did have atrial fibrillation post lung transplant and was on amiodarone for a short period. She is asymptomatic from atrial fibrillation. Her ventricular rates have decreased to 80s at rest with diltiazem drip and this is being transitioned to oral diltiazem today. CHADSVASC score is 3 (1 for age > 65, 1 for HTN, and 1 for female gender), suggesting benefit from therapeutic anticoagulation. Patient also had a DVT last year for which she was on warfarin but an having melena from PUD in September 2016. She has known H. pylori infection but has not taken her antibiotics or PPI yet. Recommendations as below: - Uptitrate diltiazem from 30 mg PO every 6 hours as to say to keep ventricular resting rate less than 90 bpm. At discharge, patient can be switched to long- acting diltiazem. - While patient needs to be on anticoagulation, her risk of bleeding is too high due to untreated peptic ulcer disease. I have educated the patient that she should start her H pylori treatment as soon as possible and then restart warfarin. - If the patient remains in atrial fibrillation after finishing H pylori treatment, she can be considered for cardioversion electively as an outpatient after she tolerates warfarin for 3 weeks. This can be done through or through [facility]. # PUD: patient had melena in 09/2016 while being on warfarin for DVT treatment. Will defer PUD management to GI and primary team # B/l Lung transplant: - Continue immunosupression # CKD: from tacrolimus. Stable. Continue to monitor Thank you for the interesting consultation. Cardiology will sign off at this time. Pain Evaluation: Adequate Pain Control VTE Prophylaxis Indicated: Contraindicated (active GI bleed) VTE Mechanical Devices: Intermittant Pneumatic CD Resuscitation Status: DNR/DNI:Do Not Resuscitate/Intubate Junior Khan MD Mar 11, 2017 15:36
--- NOTE | 2017-03-11 16:14 | NUR ---
HR Pt HR increases to 145 with activity per dermatology technician. Pt moved from bed to [facility]. Pt states she is not used to staying in bed but feels anxious about heart rate increase when she moves. Care continues.
--- NOTE | 2017-03-11 18:34 | NUR ---
Heart Rate Pt Aflutter 154 for 20 minutes at rest per groundwater monitoring technician. paged. Pt denies SOB, chest pain or lightheadedness. Care continues.
[2017-03-11] MEDS: Calcitonin 200 IU 3.7 mL Nasal Spray NASAL SCH (20:37)
[2017-03-12] VITALS (9 sets, daily range): BP systolic 96–118; BP diastolic 67–93; PULSE 76–153; RESP 16–22; O2SAT 95–98
[2017-03-12] MEDS: Diltiazem 5 mg/mL 5 mL Inj IVPUSH PRN ×5 (01:12→04:40)
[2017-03-12 02:32] LABS: Mean Corpuscular Hemoglobin 28.2 pg (27.0-35.0); Mean Corpuscular Volume 87.7 fL (81-100)
--- NOTE | 2017-03-12 05:15 | NUR ---
HR/Diltiazem PO with IVP At beginning of shift pt was in A-Flutter 150s and sustaining and dayshift RN notified MD. MD increased the pt's PO Diltiazem from 30mg to 45mg Q6H. Pt was given 45mg PO Diltiazem once the correct day and time and dose were in the EMAR. Pt's HR continued to sustain in the 150s and MD was notified. Diltiazem 5mg IVP PRN Q15Min for HR>140 >15 minutes was ordered. Pt received Dilt 5mg IVP x2 before pt's HR went down into the 80s at approximately 0200. Pt was unable to sustain the lower HR and pt went back in to the 140s-150s. Pt was given another 45mg PO dose of Dilt and pt's HR continued to sustain in the 140s-150s. Pt then received 5mg Dilt IVP x3 before pt's HR decreased into the 110s. Pt's HR is currently in the 110s with BP 105/65.
--- NOTE | 2017-03-12 07:51 | NUR ---
H. Pylori ABX Prescriptions from Pt's PCP Pt gave me a copy of the prescriptions that her PCP gave her for the H.pylori. I have left the copy of these prescriptions in the front of her paper chart for viewing. Pt already sent the originals to her local pharmacy to be filled. Pt was going to get the prescriptions filled but then came to the hospital due to her rapid HR.
[2017-03-12] MEDS: Calcium Carbonate (Oyster Shell) 500 mg Tablet PO SCH (08:30)
[2017-03-12] MEDS: predniSONE 10 mg Tablet PO SCH (08:31)
[2017-03-12] MEDS ORDERED: LORazepam 0.5 mg Tablet PO PRN (10:10)
--- NOTE | 2017-03-12 10:11 | NUR ---
HR At approximately 0830 administered 60 mg Diltiazem PO, HR 154. Per director of technology HR maintained 140s. 0926 quick drop to 120s back up in one minute to 140-150bpm. 0939 pt dropped to 88, back up to 140-150s. notified.
[2017-03-12] MEDS ORDERED: levoFLOXacin 500 mg Tablet PO ONE (11:10)
[2017-03-12] MEDS: Pantoprazole 20 mg ER24 Tablet PO SCH ×2 (12:33→20:50)
--- NOTE | 2017-03-12 13:15 | PCM.PNMED ---
Subjective Date of Service Mar 12, 2017 Subjective Yesenia Penny is a 66 year old woman with a PMH of idiopathic pulmonary fibrosis s/p BL lung transplant in 2012, active PUD with H.pylori positivity, and factor V leiden with previous DVTs who presents in rapid Afib with RVR. The patient is somewhat anxious about her hospital course, and is apprehensive to ambulate as her heart rate increases with activity. She denies chest pain, palpitations, SOB, or dizziness. Overnight the patient continued to be tachycardic in the 140 range. Comprehensive ROS negative except as listed above. Exam Vital Signs Vital Sign - Last Date Time Temp Pulse Resp B/P Pulse Ox O2 Delivery O2 Flow Rate FiO2 03/12/17 12:45 36.8 99 22 109/73 96 Room Air Intake and Output 03/11/17 03/11/17 03/12/17 Cumulative From/Thru 15:00 23:00 07:00 03/10/17 11:52 - 03/12/17 05:34 Intake Total 712 ml 200 ml 2713 ml Output Total 150 ml 500 ml 1000 ml Balance 562 ml -300 ml 1713 ml Intake Oral 636 ml 200 ml 1136 ml IV Total 76 ml 1577 ml Output Urine Total 150 ml 500 ml 1000 ml # Bowel Movements 1 0 3 Exam Gen: A/O x3 pleasant cooperative woman in mild acute distress secondary to her aversion to hospitals Neck: Supple, non tender, no thyromegaly, no JVD HEENT: PERRL, EOMI, no scleral icterus, no conjunctival pallor CV: Irregularly irregular, rate in 80s, no murmurs rubs or gallops Resp: Lungs CTA BL, no wheezing rales or rhonchi Abd: Soft, no rebound guarding masses or tenderness Extr: No clubbing cyanosis or edema Neuro: CN 2-12 grossly intact, no focal neurologic deficit Psych: Some evident frustration in her continued hospitalization. IVs and Medications Medications Reviewed: Medications were reviewed in detail Lab and Diagnostics Item Value Date Time Red Blood Count 3.41 mil/mm3 L 03/12/17 0200 Mean Corpuscular Volume 87.7 fL 03/12/17199 Mean Corpuscular Hemoglobin 28.2 pg 03/12/17199 Mean Corpuscular Hemoglobin Concent 32.1 % 03/12/17199 Red Cell Distribution Width 23.4 % H 03/12/17199 Estimat Glomerular Filtration Rate 39 mL/min 03/12/17199 Total Bilirubin 0.2 mg/dL 03/12/17199 Aspartate Amino Transf (AST/SGOT) 20 U/L 03/12/17199 Alanine Aminotransferase (ALT/SGPT) 11 U/L 03/12/17199 Alkaline Phosphatase 54 U/L 03/12/17199 Total Protein 5.8 g/dL L 03/12/17199 Albumin 3.3 g/dL L 03/12/17199 Result Diagram: 03/12/1719903/12/17199 X-Rays, CTs and MRIs X-RAY CHEST ONE VIEW, PORTABLE IMPRESSION: No acute pulmonary process. Dictated by: Amanda Torres M.D. on 03/10/2017 at 12:10 Approved by: Amanda Torres M.D. on 03/10/2017 at 12:11 . 12-lead ECG aflutter with a rate of 145 upon presentation Cardiac Echo Impressions Echocardiogram Interpretation Summary 1) Normal left ventricular thickness, size, wall motion, and systolic function (EF 60-65%). 2) Normal right ventricular size and function. 3) The left atrium is moderately dilated. 4) No significant valvular abnormalities. 5) Atrial fibrillation with ventricular rates in the 79-127bpm are present during the study. 6) No prior Echo avaliable for comparison. Reading Physician:02:44 PM . Assessment & Plan Yesenia Penny is a complex 66 year old woman with a PMH of idiopathic pulmonary fibrosis s/p BL lung transplant in 2012 on chronic immunosuppressive therapy, Factor V Leiden with prior DVT, and active H.pylori PUD having discontinued Warfarin on February 12; she presents with asymptomatic Afib with RVR with rates in the 140s. Afib with RVR, POA, acute. Active -Patient with a history of Afib following transplant surgery treated with Metoprolol and Amiodarone -Dilt drip discontinued , patient switched to oral diltiazem every 6hrs, titrating dose to effectiveness -Patient already meets criteria for anticoagulation due to factor V Leiden mutation -Will hold Warfarin due to recent GI bleed -Tele monitoring -Cardiology following -Echocardiogram ejection fraction 60-65%. Other findings as above -Rate has been highly labile with periods of control and then rapid Afib/ flutter with activity Factor V Leiden mutation, POA, acute, active -Warfarin was discontinued due to gastric bleeding secondary to ulcers -Diltiazem drip discontinued on 03/11 due to developing SVT -Continue to monitor for signs of DVT, SVT, PE S/P Bl lung transplant, POA, chronic. Stable -Continue immunosuppressive regimen Tacrolimus -Patient pulmonary status is apparently stable without pulmonary meds CKD stage IIIB, POA. Active -Likely secondary to Tacrolimus -Being followed by hosiery mender at she cannot recall the name -Will continue Calcium supplementation with Calcitonin, Calcium Carb, and D3 H.pylori positive PUD, POA, chronic. Active -Holding Warfarin as above -Per discussion with patient will initiate quadruple therapy per outpatient recommendations (Levofloxacin, Amoxicillin, Metronidazole and protonix) Patient will only due sequential therapy so we will start the PPI and Levofloxacin at this time and will add the amoxicillin and metronidazole 7 days later -Continue to Track H/H Chronic back pain, POA. Active -patient's home Percocet make her "loopy" only use as needed -Tylenol PRN -Calcium supplementation as above -patient prefers to periodically ambulate Hypothyroid, POA, chronic. Active -Continue home Levothyroxine Chronic Diarrhea, POA. Active -Continue home Loperamide Disposition: Patient's rate continues to be difficult to control, will likely require a further 24 hours of observation to ensure effective agent and dosing has been established. Pain Evaluation: Adequate Pain Control GI Prophylaxis: Proton Pump Inhibitor VTE Mechanical Devices: Intermittant Pneumatic CD Resuscitation Status: DNR/DNI:Do Not Resuscitate/Intubate Attending Statement The patient was seen and examined together with Dr. Perez on 03/12/17 and I have added additional information to the note above. Earl Perez DO Mar 12, 2017 13:15 Kim Norris DO Mar 12, 2017 15:50
--- NOTE | 2017-03-12 14:46 | NUR ---
ABX H. Pylori Pt refuses Flagyl and Amoxicillin. States her ABX are supposed to be in sequential doses. Notified MD. Care continues.
--- NOTE | 2017-03-12 17:34 | NUR ---
Social Work Note: Initial Assessment Data& Assessment: EMR reviewed. OPERATIONS ADMINISTRATIVE ASSISTANT met with pt at bedside to discuss discharge planning, SW role explained and Discharge Planning Checklist packet provided. Yesenia Penny is a 66 year old female admitted on 03/10/2017 for tachycardia. Pt has Medicare and [facility] Direct Med Plan Supplement. Pt sees Vanessa Nguyen MD for primary care. Pt lives in [place] with her spouse and is independent at baseline with all ADL's. Pt uses a 4WW and cane at baseline for ambulation and she drives. Pt does not have SNF or HH hx. Pt does not have LTC insurance or VA benefits. Pt independent with self care and MD does not identify concerns for pt capacity for self care at this time. Pt has DPOA/AD paperwork completed, OPERATIONS ADMINISTRATIVE ASSISTANT requested a copy when possible. Pt family to transport her home when medically ready. Pt denies any needs at this time. No other discharge needs or MD orders identified. OPERATIONS ADMINISTRATIVE ASSISTANT to continue to follow. Plan: Anticipated discharge home via POV when medically ready. Pt denies any needs at this time. No other discharge needs or MD orders identified. OPERATIONS ADMINISTRATIVE ASSISTANT to continue to follow. DARBY Kong Addendum: 03/12/17 at 1738 by FLORENTIN PARRA Amended: Links added.
[2017-03-12] MEDS: Calcitonin 200 IU 3.7 mL Nasal Spray NASAL SCH (20:50)
[2017-03-13 02:42] LABS: BASOPHILS % (AUTO) 0.4 % (0-3); EOSINOPHILS % (AUTO) 0.3 % (0-5); MONOCYTES % (AUTO) 9.9 % (4-12); Mean Corpuscular Hemoglobin 27.9 pg (27.0-35.0); Mean Corpuscular Volume 90.4 fL (81-100); NEUTROPHILS % (AUTO) 62.8 % (40-74); Platelet Count 137 bil/L (150-400)
[2017-03-13 03:14] VITALS: BP 107/88; PULSE 114; RESP 20; O2SAT 98
[2017-03-13 03:21] LABS: Magnesium 2.1 mg/dL (1.6-2.6); Phosphorus 3.9 mg/dL (2.5-4.9)
--- NOTE | 2017-03-13 07:16 | NUR ---
HR with PO Meds/Request for Copy of Latest Lab Work Pt's HR at beginning of shift was 70s-100s even when up with activity. Pt received metoprolol and diltiazem PO and pt's HR remained in this range. Approximately 15 minutes before the pt's next dose of diltiazem was to be administered the pt's HR went up into the 140s and sustained their. At approximately 45-60 minutes after administering the medication the pt's HR went down into the 70s-80 range and sustained their. Pt is requesting a copy of her latest lab work so that she can take it to her upcoming MD visit and oncoming RN has been made aware.
[2017-03-13] MEDS ORDERED: 0.9% Sodium Chloride 1,000 ML IV ONE (07:20)
[2017-03-13] MEDS ORDERED: levoFLOXacin 250 mg Tablet PO SCH (07:30)
[2017-03-13 07:44] VITALS: BP 131/86; PULSE 99; RESP 17; O2SAT 98
[2017-03-13] MEDS: Pantoprazole 20 mg ER24 Tablet PO SCH (07:46)
[2017-03-13] MEDS: predniSONE 10 mg Tablet PO SCH (07:47)
[2017-03-13] MEDS: Calcium Carbonate (Oyster Shell) 500 mg Tablet PO SCH (07:48)
[2017-03-13 08:40] VITALS: PULSE 101
[2017-03-13 12:30] VITALS: BP 91/61; PULSE 77; RESP 19; O2SAT 97
[2017-03-13] MEDS ORDERED: METO25TA6 PO (14:20)
[2017-03-13] MEDS ORDERED: LVF250T PO (14:20)
[2017-03-13] MEDS ORDERED: DILT180C9 PO (14:20)
[2017-03-13] MEDS ORDERED: PANT40TA3 PO (14:20)
--- NOTE | 2017-03-13 14:41 | NUR ---
PT NOTE-- No PT needs per nrsg. Patient to be discharged this afternoon and is up I'ly.
--- NOTE | 2017-03-13 14:44 | PCM.DIMED ---
Andrae Rodriguez DO 03/13/17 1444: Discharge Instructions Date of Service Mar 13, 2017 Dates of Hospitalization Mar 10, 2017 at 16:51 Discharge Diagnosis Discharge Diagnosis Atrial fibrillation with rapid ventricular rate Factor V Leiden mutation Status post Bilateral lung transplant CKD stage IIIB H.pylori positive PUD Chronic back pain Hypothyroid Chronic Diarrhea Medication Instructions Additional med instructions Please take your previous home medications as prescribed except for the following changes: We would like you to take diltiazem ER 180 mg twice per day, Levofloxacin 250 mg daily for the next 5 days, in combination with the metronidazole and azithromycin which you are already taking. Metoprolol all 15 mg twice a day Pantoprazole was changed from 20 mg twice a day to 40 mg once per day These continue to hold warfarin until upper endoscopy can be repeated. Test Results Test Results An x-ray performed here in the hospital found no acute changes. An echocardiogram performed here found that you have an ejection fraction of 60- 65% (normal), with atrial fibrillation, and moderate dilation of the left atrium. Diet Discharge Diet: No restrictions Activity Discharge Activity: No restrictions Call your provider Call your provider for: Fever or Chills, Shortness of breath, Bleeding, Chest pain, Vomitting, Excessive diarrhea, Weakness (unilateral) Patient Instructions Patient Instructions Please continue to take medications as described above. You will follow up with your GI doc for an upper endoscopy, and once you are cleared by GI you may begin taking her warfarin at that time. Once warfarin is stable at therapeutic levels you will likely need a transesophageal echo to rule out blood clots prior to cardioversion performed by cardiology. If you have any further questions about your care please do not hesitate to ask. Follow-up plan Please follow-up with your primary care doctor, as well as your GI doctor. You may also follow-up with Dr. Chau, the take out waitress who conducted your echocardiogram, and 5-6 weeks. We will give you printout of the records here so that he may reveal the take those to your doctors who are not in our system. Follow-up Provider: Junior Khan MD Follow-up with PCP in: 5 weeks Kim Norris DO 03/13/17 1609: Discharge Instructions Medication Instructions Additional med instructions Nursing corrected the above errors and explained to the patient that she is to take 50mg of Metoprolol BID and to continue to hold her warfarin until the upper endoscopy is completed. Attending's Statement The patient was seen and examined together with Dr. Rodriguez on 03/13/17 and I have added additional information to the note above. Andrae Rodriguez DO Mar 13, 2017 14:44 Kim Norris DO Mar 13, 2017 16:09
--- NOTE | 2017-03-13 15:06 | PCM.DC.MED ---
Discharge Summary Date of Service Mar 13, 2017 Dates of Hospitalization Date of Hospital Admission Mar 10, 2017 at 16:51 Date of Discharge: Mar 13, 2017 Providers: Admitting Physician: Kim Norris DO Primary Care Physician: Chandler Nguyen MD Attending Physician: Kim Norris DO Diagnosis at Time of Discharge Diagnosis at Time of Discharge Atrial fibrillation with rapid ventricular rate Factor V Leiden mutation Status post Bilateral lung transplant CKD stage IIIB H.pylori positive PUD Chronic back pain Hypothyroid Chronic Diarrhea Consultations Cardiology: Dr. Khan Procedures XRay, CTs & MRIs X-RAY CHEST ONE VIEW, PORTABLE IMPRESSION: No acute pulmonary process. Dictated by: Amanda Torres M.D. on 03/10/2017 at 12:10 Approved by: Amanda Torres M.D. on 03/10/2017 at 12:11 . ECG 12 Lead aflutter with a rate of 145 upon presentation Cardiac Echo Impression Echocardiogram Interpretation Summary 1) Normal left ventricular thickness, size, wall motion, and systolic function (EF 60-65%). 2) Normal right ventricular size and function. 3) The left atrium is moderately dilated. 4) No significant valvular abnormalities. 5) Atrial fibrillation with ventricular rates in the 79-127bpm are present during the study. 6) No prior Echo avaliable for comparison. Reading Physician:02:44 PM . Brief History 66-year-old female with past medical history hypertension, coronary artery disease, DVT, gastric ulcers with positive H. pylori, factor V Leiden, idiopathic pulmonary fibrosis status post bilateral lung transplant (2012) currently on tacrolimus therapy presented to the emergency department with atrial flutter and RVR. In the emergency department she was given diltiazem IV ; however, did not convert to sinus rhythm at that time. She was started on a diltiazem drip and remained in atrial flutter throughout the course of her hospital stay. Cardiology was consulted, and due to her complex medical history , elected to delay cardioversion until the patient could reinitiate warfarin therapy, but she is unable to be anticoagulated due to a recent GI bleed secondary to H.pylori gastric ulcer. She was transitioned to 30 mg PO diltiazem and titrated up to 75 mg Q6 hours for rate control. Despite this dose of diltiazem the patient remained tachycardic and metoprolol 50 mg twice a day was added to her medication regimen. With both medications on board the patient remained mildly tachycardic however is suitable for discharge home. The patient 's lung transplant doctor from the [facility] was contacted and the patient scheduled an appointment with him for 03/14. Due to the drug interaction of diltiazem with tacrolimus the patient will have her dose of tacrolimus titrated appropriately by her lung transplant doctor. Hospital Course Yesenia Penny is a complex 66 year old woman with a PMH of idiopathic pulmonary fibrosis s/p BL lung transplant in 2012 on chronic immunosuppressive therapy, Factor V Leiden with prior DVT, and active H.pylori PUD having discontinued Warfarin on February 12; she presents with asymptomatic Afib with RVR. Afib with RVR, POA, acute. Active -Patient with a history of Afib following transplant surgery treated with Metoprolol and Amiodarone -Dilt drip discontinued , patient switched to oral diltiazem twice a day -Patient already meets criteria for anticoagulation due to factor V Leiden mutation, warfarin held due to GI bleed -Cardiology signed off 03/11 -Echocardiogram ejection fraction 60-65%. Other findings as above -Rate has been highly labile with periods of control and then rapid Afib/ flutter with activity Factor V Leiden mutation, POA, acute, active -Warfarin was discontinued due to gastric bleeding secondary to ulcers -Diltiazem drip discontinued on 03/11 due to developing SVT -Continue to monitor for signs of DVT, SVT, PE S/P Bl lung transplant, POA, chronic. Stable -Continue immunosuppressive regimen Tacrolimus -Patient pulmonary status is apparently stable without pulmonary meds CKD stage IIIB, POA. Active -Likely secondary to Tacrolimus -Being followed by career representative at she cannot recall the name -Will continue Calcium supplementation with Calcitonin, Calcium Carb, and D3 H.pylori positive PUD, POA, chronic. Active -Holding Warfarin as above -Per discussion with patient will initiate quadruple therapy per outpatient recommendations (Levofloxacin, Amoxicillin, Metronidazole and protonix) Patient will only due sequential therapy so we will start the PPI and Levofloxacin at this time and will add the amoxicillin and metronidazole 7 days later Chronic back pain, POA. Active -patient's home Percocet make her "loopy" only use as needed -Tylenol PRN -Calcium supplementation as above -patient prefers to periodically ambulate Hypothyroid, POA, chronic. Active -Continue home Levothyroxine Chronic Diarrhea, POA. Active -Continue home Loperamide Exam Vital Signs (Last) Date Time Temp Pulse Resp B/P Pulse Ox O2 Delivery O2 Flow Rate FiO2 03/13/17 12:30 36.5 77 19 91/61 97 Room Air Exam General: No acute distress, well-developed, well-nourished HEENT: Normocephalic, atraumatic. External ears without defect. Pupils equal, round, and reactive to light and accommodation. Anicteric sclerae, moist conjunctivae. Cardiovascular: Tachycardic with no murmurs, rubs, or gallops appreciated Pulmonary: Clear to auscultation bilaterally with no crackles, wheezes, or rhonchi. Normal respiratory effort with no use of accessory muscles. Abdomen: Bowel tones present. Soft, nontender, nondistended. Extremities: No clubbing, cyanosis, edema Skin: Normal temperature, turgor, and texture; no rash, ulcers, or subcutaneous nodules appreciated. Neurological: Cranial nerves grossly intact. Reflexes, coordination, and sensory function within normal limits. Normal muscle strength, tone, and bulk. Psychiatric: Anxious, normal mood and affect. Alert and oriented to person, place, and time Test 03/10/17 12:38 03/10/17 22:45 03/11/17 00:18 03/13/17 02:03 Hold [place] Top Tube Received (Received) Urine Color Yellow (YELLOW) Urine Appearance Clear (CLEAR,HAZY) Urine pH 6.0 (5.0-8.0) Urine Specific [place] 1.015 (1.003-1.035) Urine Protein Tracemg/dL (NEG,TRACE) Urine Glucose (UA) Negativemg/dL (NEGATIVE) Urine Ketones Negativemg/dL (NEGATIVE) Urine Occult Blood Trace (NEGATIVE) Urine Nitrite Negative (NEGATIVE) Urine Bilirubin Negative (NEGATIVE) Urine Urobilinogen Normalmg/dL (NORMAL) Urine Leukocyte Esterase Negative (NEGATIVE) Urine RBC 3-10/hpf (0-2) Urine WBC 0-5/hpf (0-5) Urine Epithelial Cells Few/hpf (NONE-MOD) Urine Crystals None seen (NONE SEEN) Urine Bacteria None/hpf (NONE-FEW) Urine Hyaline Casts 5/20/lpf (NONE) Urine Granular Casts None seen (NONE SEEN) Urine Waxy Casts None seen (NONE SEEN) Urine Red Blood Cell Casts None seen (NONE SEEN) Urine White Blood Cell Casts None seen (NONE SEEN) Urine Mucus None seen (None Seen) Urine Trichomonas None seen (NONE SEEN) Urine Yeast None (NONE SEEN) Urinalysis Comment None Urine Culture Reflexed Not indicated Hold Purple Top Tube Received (Received) Prothrombin Time 10.5sec (8.1-12.5) Prothromb Time International Ratio 0.98ratio Hold Blue Top Tube Received (Received) Troponin T 0.027ug/L (0.0-0.011) Hold [place] Top Tube Received (Received) White Blood Count 7.0th/mm3 (3.8-10.1) Red Blood Count 3.23mil/mm3 (3.90-5.20) Hemoglobin 9.0g/dL (12.0-15.6) Hematocrit 29.2% (35.0-46.0) Mean Corpuscular Volume 90.4fL (81-100) Mean Corpuscular Hemoglobin 27.9pg (27.0-35.0) Mean Corpuscular Hemoglobin Concent 30.8% (32.0-37.0) Red Cell Distribution Width 23.7% (12.3-15.4) Platelet Count 137bil/L (150-400) Neutrophils (%) (Auto) 62.8% (40-74) Lymphocytes (%) (Auto) 23.9% (14-46) Monocytes (%) (Auto) 9.9% (4-12) Eosinophils (%) (Auto) 0.3% (0-5) Basophils (%) (Auto) 0.4% (0-3) Phosphorus Level 3.9mg/dL (2.5-4.9) Magnesium Level 2.1mg/dL (1.6-2.6) Total Bilirubin 0.2mg/dL (0.0-1.2) Aspartate Amino Transf (AST/SGOT) 23U/L (0-50) Alanine Aminotransferase (ALT/SGPT) 12U/L (0-32) Alkaline Phosphatase 52U/L (25-165) Total Protein 5.5g/dL (6.4-8.4) Albumin 3.1g/dL (3.4-5.0) Test 03/13/17 10:00 Sodium Level 141mEq/L (134-144) Potassium Level 4.3mEq/L (3.5-5.2) Chloride Level 108mEq/L (97-108) Carbon Dioxide Level 23mmol/L (18-29) Blood Urea Nitrogen 62mg/dL (8-27) Creatinine 1.87mg/dL (0.57-1.00) Estimat Glomerular Filtration Rate 39mL/min (>59) Glucose Level 127mg/dL (60-99) Calcium Level 9.1mg/dL (8.5-10.1) Discharge Medications Discharge Medications Calcitonin [place] (Miacalcin) 30 [place]/3.7 Ml Nasalspr 1 SPRAY NA HS (Reported) [place] in 1 Nostril (Alternating Nostrils) Daily Calcium Carbonate (Tums) 500 Mg Tab.chew 500 MG PO DAILY (Reported) Cholecalciferol (Vitamin D3) (Vitamin D) 1,000 Unit Tablet 1,000 UNIT PO DAILY ( Reported) Diltiazem ER (Diltiazem ER) 180 Mg Cap.er.deg 180 MG PO BID Prescribed by: CHRYSTAL BAXTER DO Levofloxacin (Levaquin) 250 Mg Tablet 250 MG PO DAILYAC Prescribed by: CHRYSTAL BAXTER DO Levothyroxine (Synthroid) 112 Mcg Tablet 88 MCG PO DAILY (Reported) Loperamide HCl (Imodium A-D) 2 Mg Capsule 2-4 MG PO QAM (Reported) Metoprolol Tartrate (Metoprolol Tartrate) 25 Mg Tablet 50 MG PO BID Prescribed by: CHRYSTAL BAXTER DO Multivitamin (Multi Vitamin Daily) 1 Each Tablet 0.5 EACH PO BID (Reported) Pantoprazole DR (Pantoprazole DR) 40 Mg Tablet.dr 40 MG PO DAILY Prescribed by: CHRYSTAL BAXTER DO Prednisone (PredniSONE) 10 Mg Tablet 10 MG PO QAM (Reported) Sulfamethoxazole/Trimeth 400-80 mg (Bactrim) 1 Each Tablet 80 MG PO HS (Reported ) Tacrolimus (Prograf) 1 Mg Capsule 2 MG PO QAM (Reported) Tacrolimus (Tacrolimus) 1 Mg Capsule 3 MG PO QPM (Reported) As needed Acetaminophen (Extra Strength Non-Aspirin) 500 Mg Tablet 1-2 EACH PO BID PRN PRN For Pain (Reported) Hydrocodone-Acetaminophen 5-325 mg (Hydrocodone-Acetaminophen 5-325 mg) 1 Each Tablet 1 EACH PO Q4 PRN PRN For Pain (Reported) Additional med instructions Please take your previous home medications as prescribed except for the following changes: We would like you to take diltiazem ER 180 mg twice per day, Levofloxacin 250 mg daily for the next 5 days, in combination with the metronidazole and azithromycin which you are already taking. Metoprolol all 15 mg twice a day Pantoprazole was changed from 20 mg twice a day to 40 mg once per day These continue to hold warfarin until upper endoscopy can be repeated. Followup Plan Disposition: Home Follow-up plan Please follow-up with your primary care doctor, as well as your GI doctor. You may also follow-up with Dr. Chau, the party supply specialist who conducted your echocardiogram, and 5-6 weeks. We will give you printout of the records here so that he may reveal the take those to your doctors who are not in our system. Discharge Diet: No restrictions Discharge Activity: No restrictions Patient Instructions Please continue to take medications as described above. You will follow up with your GI doc for an upper endoscopy, and once you are cleared by GI you may begin taking her warfarin at that time. Once warfarin is stable at therapeutic levels you will likely need a transesophageal echo to rule out blood clots prior to cardioversion performed by cardiology. If you have any further questions about your care please do not hesitate to ask. Follow-up Provider: Junior Khan MD Follow-up with PCP in: 5 weeks Time spent Greater than 35 minutes spent on documentation and coordination of discharge. Attending Statement The patient was seen and examined together with Dr. Baxter on 03/13/17 and I have added additional information to the note above. copies to: Junior Khan MD, Adam J DO Mar 13, 2017 15:06 Kim Norris DO Mar 13, 2017 18:18
--- NOTE | 2017-03-13 15:37 | NUR ---
Discharge The pt left the unit at 1535 via wheelchair and [employer]. The pt is being transported home by her in a private vehicle. The pt left the unit with all her belongings and her packet of discharge information - including follow up appointment info and new scripts. The pt and her verbalized understanding of all discharge teaching. The pt left the unit A&Ox3 with VSS.
== END 2017-03-13 15:39 | disposition home or self-care (01) | DRG 309 ==
LOC: SED 11:29 → PCC 16:51 → OBSVTOIN 16:51
PROVIDERS: ADMIT Neuromusculoskeletal Medicine & OMM; ATTEND Neuromusculoskeletal Medicine & OMM
PROC: 3E033RZ Introduction of Antiarrhythmic into Peripheral Vein, Percutaneous Approach (ICD-10-PCS; principal; 2017-03-10)
DX: I48.91 Unspecified atrial fibrillation (principal); I24.8 Other forms of acute ischemic heart disease; Z94.2 Lung transplant status; D81.9 Combined immunodeficiency, unspecified; D68.51 Activated protein C resistance; K27.3 Acute peptic ulcer, site unspecified, without hemorrhage or perforation; I48.92 Unspecified atrial flutter; N14.1 Nephropathy induced by other drugs, medicaments and biological substances; T45.1X5A Adverse effect of antineoplastic and immunosuppressive drugs, initial encounter; N18.3 Chronic kidney disease, stage 3 (moderate); I25.10 Atherosclerotic heart disease of native coronary artery without angina pectoris; I12.9 Hypertensive chronic kidney disease with stage 1 through stage 4 chronic kidney disease, or unspecified chronic kidney disease; E03.9 Hypothyroidism, unspecified; G89.29 Other chronic pain; K52.9 Noninfective gastroenteritis and colitis, unspecified; Z66 Do not resuscitate; Z79.01 Long term (current) use of anticoagulants; Z86.718 Personal history of other venous thrombosis and embolism; Z87.891 Personal history of nicotine dependence

== ENCOUNTER 2017-04-13 10:06 | Emergency (ER) | payer MEDICARE, OTHER ==
[~2017-04-13] VITALS: Ht 157.5 cm; Wt 65.5 kg
[~2017-04-13 10:06] MED LIST changes: +ACET-2561 PO; -ACET-97 PO; -CALC-784 PO; +CALC500T9 PO; +DILT180C9 PO; +FERR324T2 PO; +LVF250T PO; +METO25TA6 PO; -MULT-1007 PO; +MULT-1018 PO; +PANT40TA3 PO; -WARF5TAB PO
[2017-04-13 10:14] VITALS: BP 167/115; PULSE 68; RESP 20; O2SAT 99
--- NOTE | 2017-04-13 10:31 | ED.REPORT ---
HPI-Extremity Problem Lower Date of Service Apr 13, 2017 ED Provider: Analilia Kovacs MD Yesenia is a 66-year-old female with a history of CAD, HTN, chronic edema, kidney injury and bilateral lung transplant presenting the emergency department with right knee pain. Patient states she was working on her knees in the garden when she attempted to stand up. She felt a "crunch" in her right knee and fell over. She is able to walk on the affected knee. Denies clicking, popping and catching, instability. Denies history of osteoporosis, knee injury. Nursing Notes Stated Complaint: RIGHT KNEE PAIN Chief Complaint: Extremity Trauma Nursing Notes Reviewed: Yes Allergies: Coded Allergies: No Known Allergies (Verified , 04/13/17) Scheduled Calcitonin [place] (Miacalcin) 30 [place]/3.7 Ml Nasalspr 1 SPRAY NA HS [place] in 1 Nostril (Alternating Nostrils) Daily Calcium Carbonate (Tums) 500 Mg Tab.chew 500 MG PO DAILY Cholecalciferol (Vitamin D3) (Vitamin D) 1,000 Unit Tablet 1,000 UNIT PO DAILY Diltiazem ER (Diltiazem ER) 180 Mg Cap.er.deg 180 MG PO BID Ferrous Sulfate (Ferrous Sulfate) 324 Mg Tablet.dr 324 MG PO BID Levofloxacin (Levaquin) 250 Mg Tablet 250 MG PO DAILYAC Levothyroxine (Synthroid) 112 Mcg Tablet 88 MCG PO DAILY Loperamide HCl (Imodium A-D) 2 Mg Capsule 2-4 MG PO QAM Metoprolol Tartrate (Metoprolol Tartrate) 25 Mg Tablet 50 MG PO BID Multivitamin (Multi Vitamin Daily) 1 Each Tablet 0.5 EACH PO BID Pantoprazole (Pantoprazole DR) 40 Mg Tablet.dr 40 MG PO DAILY Prednisone (PredniSONE) 10 Mg Tablet 10 MG PO QAM Sulfamethoxazole/Trimeth 400-80 mg (Bactrim) 1 Each Tablet 80 MG PO HS Tacrolimus (Prograf) 1 Mg Capsule 2 MG PO QAM Tacrolimus (Tacrolimus) 1 Mg Capsule 3 MG PO QPM Scheduled PRN Acetaminophen (Extra Strength Non-Aspirin) 500 Mg Tablet 1-2 EACH PO BID PRN PRN For Pain Hydrocodone-Acetaminophen 5-325 mg (Hydrocodone-Acetaminophen 5-325 mg) 1 Each Tablet 1 EACH PO Q4 PRN PRN For Pain General Time Seen by MD: 10:31 Chief Complaint Knee injury left Past Medical History Past Medical History DVT CAD HTN Thyroid disease 1 episode of afib Pulmonary fibrosis prior to lung transplant Immunosuppressed GI bleed chronic edema Past Surgical History Bilat lung transplant Smoking History Former Smoker Social History Alcohol Use: Denies alcohol use Drug Use: Denies drug use Other Social History: Good social support, Ambulatory Status Independent Review of Systems Review of Systems Note: Negative unless stated otherwise in history of present illness Physical Exam General: Well appearing, well developed, well nourished, no acute distress. Right hip: Excellent range of motion Right knee: Range of motion limited by pain at 90. Mild effusion noted. No redness, heat. Tenderness over the fibular head. Negative patellar, tibial tuberosity, medial or lateral joint line or popliteal tenderness. No laxity noted on varus or valgus stress, anterior or posterior drawer test. Right foot/ankle: 2+ pitting edema, DP pulse 2+, brisk capillary refill intact. Nontender. Head: Atraumatic, normocephalic. Eyes: No scleral icterus or injection. No discharge. Vision grossly intact. ENT: Voice clear, hearing grossly intact. Respiratory: No respiratory distress, no increased work of breathing. Speaks in complete sentences. Skin: Warm and dry. Neurological: Grossly nonfocal. Psychological: alert and oriented. Speech appropriate, linear and logical. Behavior appropriate. Initial Vital Signs Vital Signs (First) Date Time Temp Pulse Resp B/P Pulse Ox O2 Delivery O2 Flow Rate FiO2 04/13/17 10:14 36.7 68 20 167/115 99 Room Air Elevated blood pressure Interpretation & Diagnostics X-Ray Interpretation Xray Interpretation: PROCEDURE: X-RAY RIGHT KNEE, THREE VIEWS ([id number]) INDICATIONS: right knee pain, fibular head tenderness IMPRESSION: 1. No acute radiographic findings. If pain persists, followup imaging in 5-7 days is recommended to exclude occult fracture. 2. Degenerative change and possible intra-articular body. 3. Extensive vascular calcification. Interpretation / Wet Read by: Interpret - Radiologist, Interp - P Re-Eval/Medical Decision Med Decision/Clinical Course 66-year-old female presents emergency department complaining of right knee pain which began 2 days ago as she attempted to rise from a kneeling position or guarding. She described crunch and feeling pain in her lateral right knee. She is able to walk on the affected limb with pain. Physical examination reveals a mild knee effusion, tenderness over the head of the fibula. Range of motion and flexion is limited by pain at approximately 90 . Otherwise nontender, negative redness/heat. No laxity is noted. DP pulse 2+. I feel that x-rays are justified by the [place] knee rules based on the patient' s age and the presence of tenderness of the fibular head. These returned negative for fracture or acute process. I am reassured against fracture, dislocation resulting in vascular injury. I believe this is soft tissue injury possibly a lateral collateral ligament injury. Advised the patient to rest, ice, elevate. Tylenol for pain. Discussed case with who expresses agreement. Provided orthopedic follow-up referral. Advised regarding primary care follow-up, provided emergency return precautions. Patient verbalized understanding of, and consent to, the plan. Discharge & Departure Impression: Primary Impression: Knee pain, right Chronicity: acute Qualified Code: M25.561 - Pain in right knee Additional Impression: Elevated blood pressure reading Disposition: Home Discharge Condition All VS Reviewed: Yes Condition: Stable Patient Instructions: Knee Pain (ED) Additional Instructions: Evaluation in the emergency department for right knee pain includes interview, physical examination and x-ray, all of which are reassuring that she do not have a fracture in your knee. I believe you're stable and safe to go home. Elevate the affected limb for 10-20 minutes 3 times a day to reduce swelling. The pain is best treated with 1000 mg of acetaminophen (Tylenol) every 6 hours. You can also use Voltaren gel, a topical NSAID, applied directly to the knee. Continue using your knee brace if you find it helpful. I will provide you with a referral to an orthopedic surgeon. Please contact that office to follow up if your symptoms have not significantly improved in one week. Return to the emergency department for any new or worsening symptoms including increasing pain, redness, swelling I also note that your blood pressure was elevated during your visit to the emergency department. Please discuss this with your primary care provider. Referrals: Antoine Ybarra DO EDSupervising Provider for APC: Analilia Kovacs MD copies to: Antoine Ybarra DO; Kana Nguyen MD, Shawna L MD Apr 13, 2017 10:31 Adalid Bartlett PA-C Apr 13, 2017 11:21
--- NOTE | 2017-04-13 11:50 | DRSVH ---
PROCEDURE: X-RAY RIGHT KNEE, THREE VIEWS ([id number]) INDICATIONS: right knee pain, fibular head tenderness TECHNIQUE: 3 views of the knee were acquired. COMPARISON: None. FINDINGS: Bones: Bones are osteopenic. There are small tricompartmental osteophytes and medial and lateral comp artment joint space narrowing. No acute fracture or dislocation. Soft tissues: No joint effusion. There extensive soft tissue vascular calcifications. There is a que stionable intra-articular body within the superior knee joint space. IMPRESSION: 1. No acute radiographic findings. If pain persists, followup imaging in 5-7 days is recommended to e xclude occult fracture. 2. Degenerative change and possible intra-articular body. 3. Extensive vascular calcification. Dictated by: Farida Corley M.D. on 04/13/2017 at 11:46 Approved by: Farida Corley M.D. on 04/13/2017 at 11:48
== END 2017-04-13 12:18 | disposition home or self-care (01) ==
LOC: SED 10:06
DX: M25.561 Pain in right knee (principal); X50.1XXA Overexertion from prolonged static or awkward postures, initial encounter; Y93.89 Activity, other specified; Y92.89 Other specified places as the place of occurrence of the external cause; Y99.0 Civilian activity done for income or pay; I10 Essential (primary) hypertension; I25.10 Atherosclerotic heart disease of native coronary artery without angina pectoris; E07.9 Disorder of thyroid, unspecified; Z87.891 Personal history of nicotine dependence